=== PATIENT | male | born 1955 | race Caucasian/White ===

== ENCOUNTER → 2024-08-28 | Outpatient (CLI) | payer MEDICARE | LOC: M PLARAD 14:17 | PROVIDERS: ATTEND Internal Medicine Pulmonary Disease | DX: R91.8 Other nonspecific abnormal finding of lung field (principal) | CPT/HCPCS: 78815; A9552 ==

== ENCOUNTER → 2024-10-01 | Outpatient (CLI) | payer MEDICARE ==
[~2024-10-01] MED LIST: PROHANCE 279.3MG/ML 15ML VIAL ONE
== END ==
LOC: M PLAIMG 11:20
PROVIDERS: ATTEND Nurse Practitioner Adult Health
DX: R91.1 Solitary pulmonary nodule (principal)
CPT/HCPCS: 70553; A9576

== ENCOUNTER → 2024-10-05 | Outpatient (CLI) | payer MEDICARE ==
[~2024-10-05] MED LIST changes: +FLUT1BLS8 INH; +HOME MED LIST COMPLETE! XX SCH; +LIDOCAINE 1% MDV 20ML VIAL As Ordered ONE; +LISI5TAB11 PO; +METO1TAB32 PO; -PROHANCE 279.3MG/ML 15ML VIAL ONE; +SIMV40TA20 PO; +VENTAER INH
[2024-10-05 12:30] VITALS: TEMP 98
[2024-10-05 15:43] VITALS: BP 138/70; O2SAT 98
== END ==
LOC: M IRPRO 12:07
PROVIDERS: ATTEND Internal Medicine Pulmonary Disease
DX: R91.1 Solitary pulmonary nodule (principal); J95.811 Postprocedural pneumothorax

== ENCOUNTER → 2024-11-26 | Outpatient (CLI) | payer MEDICARE ==
[~2024-11-26] MED LIST changes: -HOME MED LIST COMPLETE! XX SCH; -LIDOCAINE 1% MDV 20ML VIAL As Ordered ONE
[2024-11-26 15:34] LABS: BASO # 0.1 10^3/uL (0.0-0.2); BASO % 0.7 % (0.0-1.0); EOS # 0.1 10^3/uL (0.0-0.5); EOS % 1.2 % (0.0-3.0); HEMATOCRIT 45.6 % (42.0-52.0); HEMOGLOBIN 14.8 g/dl (13.5-17.5); LYMPH # 2.6 10^3/uL (1.5-5.0); LYMPH % 30.7 % (24.0-44.0); MEAN CORPUSCULAR HEMOGLOBIN 32.3 pg (27.0-33.0); MEAN CORPUSCULAR HGB CONC 32.5 g/dl (32.0-36.5); MEAN CORPUSCULAR VOLUME 99.6 fl (80.0-96.0); MONO # 0.7 10^3/uL (0.0-0.8); MONO % 8.6 % (2.0-8.0); NEUTROPHILS # 4.9 10^3/uL (1.5-8.5); NEUTROPHILS % 58.6 % (36.0-66.0); RED BLOOD COUNT 4.58 10^6/uL (4.30-6.10); WHITE BLOOD COUNT 8.4 10^3/uL (4.0-10.0)
[2024-11-26 16:02] LABS: C REACTIVE PROTEIN QUANTITATIV < 0.50 MG/DL (<1.0)
[2024-11-26 16:03] LABS: HEPATITIS B SURFACE ANTIBODY NEGATIVE (POSITIVE)
[2024-11-26 16:05] LABS: ALBUMIN 3.8 G/DL (3.2-5.2); ALKALINE PHOSPHATASE 70 U/L (40-129); ALT/SGPT 14 U/L (7.0-40); AST/SGOT 19 U/L (<34); BILIRUBIN,TOTAL 0.2 MG/DL (0.3-1.2); BLOOD UREA NITROGEN 18 MG/DL (9-23); CALCIUM LEVEL 9.3 MG/DL (8.3-10.6); CARBON DIOXIDE LEVEL 27 MMOL/L (20-31); CHLORIDE LEVEL 108 MMOL/L (98-107); CREATININE FOR GFR 1.15 MG/DL (0.70-1.30); GLOMERULAR FILTRATION RATE 68.9 (>49); GLUCOSE, FASTING 87 MG/DL (74-106); POTASSIUM SERUM 4.5 MMOL/L (3.5-5.1); SODIUM LEVEL 142 MMOL/L (136-145); TOTAL PROTEIN 6.8 G/DL (5.7-8.2)
[2024-11-26 16:07] LABS: ERYTHROCYTE SEDIMENTATION RATE 21 mm/hr (0-20)
[2024-11-26 16:16] LABS: HEPATITIS B SURFACE ANTIGEN NEGATIVE (NEGATIVE)
[2024-11-26 16:37] LABS: HEPATITIS C VIRUS ABY INDEX < 0.02 INDEX (<0.8)
[2024-11-26 17:07] LABS: IMMUNOGLOBULIN A 228.5 MG/DL (40-350); IMMUNOGLOBULIN G 885 MG/DL (650-1600); IMMUNOGLOBULIN M 120.6 MG/DL (50-300)
[2024-11-27 16:50] LABS: HIV 1&2 SCREEN NEGATIVE (NEGATIVE)
== END ==
LOC: M PLALAB 11:37
PROVIDERS: ATTEND Internal Medicine Infectious Disease
DX: A31.9 Mycobacterial infection, unspecified (principal); J84.10 Pulmonary fibrosis, unspecified

== ENCOUNTER → 2024-11-27 | Outpatient (REF) | payer MEDICARE | LOC: M SFHCPLAZ 10:16 | PROVIDERS: ATTEND Internal Medicine Infectious Disease | DX: R91.1 Solitary pulmonary nodule (principal) ==

== ENCOUNTER → 2025-04-11 | Outpatient (REF) | payer MEDICARE | LOC: M SFHCPLAZ 13:01 | PROVIDERS: ATTEND Internal Medicine Infectious Disease | DX: A31.0 Pulmonary mycobacterial infection (principal) ==

== ENCOUNTER → 2025-07-09 | Outpatient (REF) | payer MEDICARE | LOC: M SFHCPLAZ 13:09 | PROVIDERS: ATTEND Internal Medicine Infectious Disease | DX: A31.0 Pulmonary mycobacterial infection (principal) ==